=== PATIENT | male | born 1960 | race Caucasian/White ===

== ENCOUNTER → 2016-11-11 | Outpatient (CLI) | payer OTHER ==
[~2016-11-11] MED LIST: ADULT LOW DOSE81 M1 PO; ADVAIR HFA120 INHALA IH; AIRBORNE TABLE1 EAC1 PO; ALBUTEROL2.5 MG/3 M IH; AMLODIPINE BESY10 MG PO; AMLODIPINE BESYL5 MG PO; ANTABUSE250 MG PO; ASPIRIN EC325 MG PO; AUGMENTIN875 MG PO; B-1100 MG PO; CAMPRAL333 MG PO; CARBAMAZEPINE200 MG PO; CARVEDILOL25 MG PO; CATAPRES0.1 MG PO; CENTRUM SILVER1 EAC3 PO; CHLORDIAZEPOXID25 MG PO; CLONIDINE HCL0.1 MG PO; COREG25 M1 PO; COZAAR50 MG PO; Catapres PO; Coreg PO; DOXYCYCLINE HY100 M3 PO; EFFEXOR37.5 MG PO; EFFEXOR75 MG PO; FOLIC ACID1 MG PO; GLUCOPHAGE500 MG PO; L-TYROSINE PO; LEVOFLOXACIN750 MG PO; LIBRIUM25 MG PO; LOPRESSOR25 MG PO; NICOTINE PATCH1 EAC2 TD; NITROSTAT0.4 MG SL; NORVASC10 MG PO; NORVASC5 MG PO; Norvasc PO; PAROXETINE HCL10 MG PO; PLAVIX75 MG PO; PRAVACHOL40 MG PO; PRAVASTATIN SOD40 MG PO; PREDNISONE10 MG PO; PREDNISONE20 MG PO; Plavix PO; Pravachol PO; SEROQUEL50 MG PO; SPIRIVA RESPIMAT4 GM IH; THIAMINE HCL100 MG PO; ULTRAM50 MG PO; VENLAFAXINE HCL75 MG PO; VENTOLIN HFA18 GM IH; VITAMIN B W/C1 EACH PO; VITAMIN C WIT1000 MG PO; ZESTRIL20 MG PO; Zestril,Prinivil PO
== END | disposition home or self-care (01) ==
LOC: RES 07:58
DX: Z02.71 Encounter for disability determination (principal)
CPT/HCPCS: 94060; 94729; 94760

== ENCOUNTER 2017-07-21 11:41 | Emergency (ER) | payer OTHER ==
[~2017-07-21] VITALS: Ht 177.8 cm; Wt 78.1 kg
[2017-07-21 12:15] LABS: HEMATOCRIT 45.2 % (38.0-50.0); HEMOGLOBIN 16.1 G/DL (12.5-16.6); MCH 33.3 PG (29.0-34.0); MCHC 35.6 G/DL (30.0-36.0); MCV 93.6 FL (86-99); PLATELET COUNT 177 K/uL (156-360); RBC DIS.WIDTH-SD 44.7 % (39-53); RED BLOOD COUNT 4.83 M/uL (4.00-5.50)
[2017-07-21 12:22] LABS: CHLORIDE 103 mEq/L (99-109); POTASSIUM 4.4 mEq/L (3.7-5.4); SODIUM 141 mEq/L (136-147)
[2017-07-21 12:23] LABS: GLUCOSE 103 mg/dL (70-99)
[2017-07-21 12:27] LABS: CREATININE 0.8 mg/dL (0.6-1.3); GFR ESTIMATE (CALCULATED) > 59 mL/min/ (58.99-99999)
[2017-07-21 12:28] LABS: UREA NITROGEN (BUN) 12 mg/dL (9-23)
[2017-07-21] MEDS ORDERED: ZITHROMAX Z-PA250 MG PO (17:29)
[2017-07-21] MEDS ORDERED: SEROQUEL300 MG PO (17:29)
[2017-07-21] MEDS ORDERED: PREDNISONE20 MG PO (17:29)
[2017-07-21 17:54] VITALS: BP 112/73
== END 2017-07-21 17:58 | disposition home or self-care (01) ==
LOC: EME 11:41
DX: J44.1 Chronic obstructive pulmonary disease with (acute) exacerbation (principal); J06.9 Acute upper respiratory infection, unspecified; F17.210 Nicotine dependence, cigarettes, uncomplicated; Z71.6 Tobacco abuse counseling; I10 Essential (primary) hypertension; I25.2 Old myocardial infarction; E11.9 Type 2 diabetes mellitus without complications; F32.9 Major depressive disorder, single episode, unspecified; F41.9 Anxiety disorder, unspecified; Z86.73 Personal history of transient ischemic attack (TIA), and cerebral infarction without residual deficits; I71.2 Thoracic aortic aneurysm, without rupture; Z79.82 Long term (current) use of aspirin
CPT/HCPCS: 71046; 80048; 85027; 99281; 99284; J7512